=== PATIENT | female | born 1950 | race African-American/Black ===

== ENCOUNTER 2024-11-06 11:40 | Inpatient (IN) | payer MEDICARE, MEDICAID ==
[~2024-11-06] VITALS: Ht 162.6 cm; Wt 63.5 kg
[2024-11-06 13:30] LABS: BASOPHILS % (AUTO) 0.4 % (0.0-2.0); EOSINOPHILS % (AUTO) 0.9 % (1.0-6.0); HEMATOCRIT 36.6 % (36-46); HEMOGLOBIN 11.3 g/dL (12.0-16.0); LYMPHOCYTES # (AUTO) 1.3 K/uL (1.0-4.8); LYMPHOCYTES % (AUTO) 16.5 % (22.0-44.0); MEAN CORPUSCULAR HEMOGLOBIN 21.4 pg (26.0-34.0); MEAN CORPUSCULAR HGB CONC 30.9 G/dL (31.0-37.0); MEAN CORPUSCULAR VOLUME 69 fL (80-100); MONOCYTES # (AUTO) 0.6 K/uL (0.1-1.0); MONOCYTES % (AUTO) 7.5 % (2.0-9.0); NEUTROPHILS # (AUTO) 5.8 K/uL (1.8-7.7); NEUTROPHILS % (AUTO) 74.7 % (40.0-70.0); PLATELET COUNT (AUTO) 265 K/uL (150-450); RED BLOOD CELL COUNT(AUTO) 5.27 MIL/uL (4.00-5.20); RED CELL DISTRIBUTION WIDTH 15.4 % (11.5-14.5); WHITE BLOOD COUNT (AUTO) 7.8 K/uL (4.5-11.0)
[2024-11-06 13:38] LABS: ANION GAP 4 mmol/L (8-16); CALCIUM, TOTAL 9.2 mg/dL (8.8-10.5); CARBON DIOXIDE 28 mmol/L (22-29); CHLORIDE 108 mmol/L (98-107); CREATININE 0.95 mg/dL (0.60-1.30); GLOMERULAR FILTR. RATE CALC > 60 mL/min (>60); GLUCOSE,RANDOM 88 mg/dL (70-110); SODIUM SERUM 140 mmol/L (136-145); UREA NITROGEN, BLOOD 19 mg/dL (7-18)
[2024-11-06 13:45] LABS: COVID AG,FIA SOURCE NASAL SWAB
[2024-11-06 14:01] LABS: RBC MORPHOLOGY COMMENT ABNORMAL RBC MORPH
[2024-11-06 14:21] LABS: APPEARANCE,URINE CLEAR (CLEAR); BILIRUBIN,URINE NEGATIVE (NEGATIVE); COLOR,URINE YELLOW (YELLOW); GLUCOSE, URINE (UA) NEGATIVE (NEGATIVE); LEUKOCYTE ESTERASE ,URINE MODERATE (NEGATIVE); NITRATE,URINE POSITIVE (NEGATIVE); OCCULT BLOOD,URINE NEGATIVE (NEGATIVE); PROTEIN,URINE TRACE mg/dL (NEGATIVE); UROBILINOGEN,URINE <=1.0 mg/dL (<=1.0)
[2024-11-06 14:27] LABS: RBC,URINE 0-2 /HPF (0-2)
[2024-11-06 14:28] LABS: ALCOHOL, URINE DRUG SCREEN NEGATIVE (NEGATIVE); AMPHET/METH SCREEN,URINE NEGATIVE (NEGATIVE); BACTERIA,URINE Many /HPF (None Seen); BARBITURATE SCREEN, URINE NEGATIVE (NEGATIVE); BENZODIAZEPINES SCREEN,URINE NEGATIVE (NEGATIVE); CANNABINOID SCREEN,URINE NEGATIVE (NEGATIVE); COCAINE SCREEN,URINE NEGATIVE (NEGATIVE); METHADONE SCREEN, URINE NEGATIVE (NEGATIVE); OPIATE SCREEN,URINE NEGATIVE (NEGATIVE); PHENCYCLIDINE SCREEN,URINE NEGATIVE (NEGATIVE); SQUAMOUS EPITHELIAL CELL,UR Few /LPF (None Seen)
[2024-11-06 14:55] LABS: SARS-COV2 (COVID) ANTIGEN,FIA Negative (Negative)
[2024-11-06] MEDS: CEPHALEXIN MONOHYDRATE 500 MG CAPSULE PO ONE (17:15)
[2024-11-06] MEDS ORDERED: ZOLPIDEM TARTRATE 10 MG TABLET PO PRN ×2 (17:30→18:30)
[2024-11-06] MEDS ORDERED: haloperidoL 5 MG TABLET PO PRN (17:30)
[2024-11-06] MEDS ORDERED: LORazepam 2 MG TABLET PO PRN (17:30)
[2024-11-06] MEDS ORDERED: AMLO-257 PO (17:32)
[2024-11-06] MEDS ORDERED: ATEN-73 PO (17:32)
[2024-11-06] MEDS ORDERED: LORazepam 1 MG TABLET PO PRN (18:30)
[2024-11-06] MEDS ORDERED: ChlorproMAZINE HCL 100 MG TABLET PO PRN (18:30)
[2024-11-06] MEDS ORDERED: PNEUMOCOCCAL VACCINE POLYVALENT 0.5 ML SYRINGE [PPSV23] IM. ONE (20:15)
[2024-11-06] MEDS: DIVALPROEX SODIUM 500 MG ER TABLET PO SCH (21:51)
[2024-11-06] MEDS: OLANZapine 5 MG TABLET PO SCH (21:51)
[2024-11-07 00:05] VITALS: O2SAT 98
[2024-11-07 01:36] VITALS: BP 118/69; PULSE 55; RESP 16; TEMP 97.5; O2SAT 94
[2024-11-07] MEDS ORDERED: ACETAMINOPHEN 325 MG TABLET PO PRN (06:45)
[2024-11-07] MEDS ORDERED: PETROLATUM,WHITE 28 GM JELLY TP PRN (06:45)
[2024-11-07] MEDS ORDERED: ONDANSETRON 4 MG TABLET PO PRN (06:45)
[2024-11-07] MEDS ORDERED: DOCUSATE SODIUM 100 MG CAPSULE PO PRN (06:45)
[2024-11-07] MEDS ORDERED: ALBUTEROL SULFATE HFA 90 MCG/PUFF 8 GM INHALER IH PRN (06:45)
[2024-11-07] MEDS ORDERED: CloNIDine HCL 0.1 MG TABLET PO PRN (06:45)
[2024-11-07] MEDS ORDERED: IBUPROFEN 600 MG TABLET PO PRN (06:45)
[2024-11-07] MEDS ORDERED: MAGNESIUM HYDROXIDE SUSPENSION 30 ML UDCUP PO PRN (06:45)
[2024-11-07] MEDS ORDERED: BENZOCAINE/MENTHOL [CEPACOL] LOZENGE PO PRN (06:45)
[2024-11-07] MEDS ORDERED: MAG HYDROX/ALUMINUM HYD/SIMETH ES 30 ML SUSPENSION UDCUP PO PRN (06:45)
[2024-11-07] MEDS ORDERED: BACITRACIN 28 GM OINTMENT TP PRN (06:45)
[2024-11-07] MEDS ORDERED: LOPERAMIDE HCL 2 MG CAPSULE PO PRN (06:45)
[2024-11-07] MEDS ORDERED: OMEPRAZOLE 20 MG CAPSULE PO PRN (06:45)
[2024-11-07 08:42] VITALS: BP 142/92; PULSE 80; RESP 18; TEMP 97.2; O2SAT 100
[2024-11-07] MEDS: cefuroxime axetiL 250 MG TABLET PO SCH (09:00)
[2024-11-07 09:36] LABS: BASOPHILS % (AUTO) 0.5 % (0.0-2.0); EOSINOPHILS % (AUTO) 1.2 % (1.0-6.0); HEMATOCRIT 36.6 % (36-46); HEMOGLOBIN 11.5 g/dL (12.0-16.0); LYMPHOCYTES # (AUTO) 1.3 K/uL (1.0-4.8); LYMPHOCYTES % (AUTO) 33.6 % (22.0-44.0); MEAN CORPUSCULAR HGB CONC 31.4 G/dL (31.0-37.0); MEAN CORPUSCULAR VOLUME 70 fL (80-100); MONOCYTES # (AUTO) 0.4 K/uL (0.1-1.0); MONOCYTES % (AUTO) 10.1 % (2.0-9.0); NEUTROPHILS # (AUTO) 2.1 K/uL (1.8-7.7); NEUTROPHILS % (AUTO) 54.6 % (40.0-70.0); PLATELET COUNT (AUTO) 267 K/uL (150-450); RED BLOOD CELL COUNT(AUTO) 5.23 MIL/uL (4.00-5.20); RED CELL DISTRIBUTION WIDTH 15.5 % (11.5-14.5); WHITE BLOOD COUNT (AUTO) 3.9 K/uL (4.5-11.0)
[2024-11-07 09:46] LABS: HEMOGLOBIN A1C 5.3 % (3.8-5.6)
[2024-11-07] MEDS: AmLODIPine BESYLATE 5 MG TABLET PO SCH (09:56)
[2024-11-07 10:11] LABS: ALANINE AMINOTRANSFERASE 48 U/L (12-78); ALBUMIN 3.4 g/dL (3.4-5.0); ALKALINE PHOSPHATASE 115 U/L (46-116); ANION GAP 8 mmol/L (8-16); ASPARTATE AMINOTRANSFERASE 36 U/L (15-37); BILIRUBIN,TOTAL 0.6 mg/dL (0.1-1.0); CALCIUM, TOTAL 9.2 mg/dL (8.8-10.5); CARBON DIOXIDE 29 mmol/L (22-29); CHLORIDE 107 mmol/L (98-107); CHOLESTEROL 196 mg/dL (131-200); CREATININE 0.86 mg/dL (0.60-1.30); FREE T4 (FREE THYROXINE) 0.92 ng/dL (0.76-1.46); GLOMERULAR FILTR. RATE CALC > 60 mL/min (>60); GLUCOSE,RANDOM 62 mg/dL (70-110); HDL CHOLESTEROL 65 mg/dL (40-60); LDL CHOL (CALC.) 117 mg/dL (0-130); POTASSIUM 3.7 mmol/L (3.5-5.1); SODIUM SERUM 144 mmol/L (136-145); T4 (THYROXINE) 6.3 mcg/dL (4.7-13.3); THYROID STIMULATING HORMONE 1.37 uIU/mL (0.36-3.74); TOTAL PROTEIN, SERUM 6.6 g/dL (6.4-8.2); TRIGLYCERIDES 71 mg/dL (15-150); UREA NITROGEN, BLOOD 13 mg/dL (7-18)
[2024-11-07 11:16] LABS: RBC MORPHOLOGY COMMENT ABNORMAL RBC MORPH
[2024-11-07 22:39] VITALS: BP 131/87; PULSE 77; RESP 18; TEMP 97.5; O2SAT 98
[2024-11-08 04:06] LABS: HEPATITIS C AB (EIA) Non Reactive (Non Reactive)
[2024-11-08 09:22] VITALS: BP 132/88; PULSE 84; RESP 18; TEMP 97.3; O2SAT 100
[2024-11-08 21:06] VITALS: BP 132/92; PULSE 100; RESP 18; TEMP 96.8; O2SAT 100
[2024-11-09 08:46] VITALS: BP 147/79; PULSE 99; RESP 18; TEMP 97.7; O2SAT 100
[2024-11-09 20:14] VITALS: BP_SYST 150; BP_DIAS 100; BP_DIAS 94; PULSE 87; RESP 18; TEMP 97.5; O2SAT 99
[2024-11-10 08:36] VITALS: BP 134/100; PULSE 77; RESP 17; TEMP 98; O2SAT 99
[2024-11-10 20:28] VITALS: BP 130/83; PULSE 73; RESP 18; TEMP 97.3; O2SAT 97
[2024-11-11] MEDS ORDERED: DIVA-153 PO (09:44)
[2024-11-11] MEDS ORDERED: OLAN5TAB52 PO (09:44)
[2024-11-11] MEDS ORDERED: MELA5TAB40 PO (09:44)
[2024-11-11 13:41] VITALS: BP 148/102; PULSE 114; RESP 17; TEMP 97.7; O2SAT 100
== END 2024-11-11 19:04 | DRG 885 ==
LOC: EMS 11:43 → B2S 18:28 → B2X 11-07 01:38
PROVIDERS: ADMIT Psychiatry & Neurology Psychiatry; ATTEND Psychiatry & Neurology Psychiatry
PROC: GZHZZZZ Group Psychotherapy (ICD-10-PCS; principal; 2024-11-06)
PROC: GZ51ZZZ Individual Psychotherapy, Behavioral (ICD-10-PCS; 2024-11-06)
PROC: GZ56ZZZ Individual Psychotherapy, Supportive (ICD-10-PCS; 2024-11-06)
DX: F20.9 Schizophrenia, unspecified (principal); N39.0 Urinary tract infection, site not specified; F02.84 Dementia in other diseases classified elsewhere, unspecified severity, with anxiety; I10 Essential (primary) hypertension; Z20.822 Contact with and (suspected) exposure to COVID-19; E78.00 Pure hypercholesterolemia, unspecified; D64.9 Anemia, unspecified; G30.9 Alzheimer's disease, unspecified; K21.9 Gastro-esophageal reflux disease without esophagitis; G47.00 Insomnia, unspecified; Z60.8 Other problems related to social environment; Z55.9 Problems related to education and literacy, unspecified; Z59.9 Problem related to housing and economic circumstances, unspecified; Z63.9 Problem related to primary support group, unspecified; Z65.3 Problems related to other legal circumstances; Z91.012 Allergy to eggs
CPT/HCPCS: 80048; 80053; 80061; 80307; 81001; 83036; 84436; 84439; 84443; 85025; 86803; 87077; 87081; 87086; 87186; 87340; 99285; G0480